=== PATIENT | female | born 1960 | race Caucasian/White ===

== ENCOUNTER 2020-10-07 17:54 | Emergency (ER) | payer BC, OTHER ==
[2020-10-07 18:10] VITALS: TEMP 98.2; BMI 25.5
[2020-10-07 20:59] LABS: BASO % 0.6 % (0-2.0); EOS % 1.4 % (0-4.5); HEMATOCRIT 42.7 % (32.4-45.2); HEMOGLOBIN 14.5 GM/dL (10.7-15.3); LYMPH % 31.2 % (8-40); MCH 31.6 pg (25.7-33.7); MCHC 33.9 g/dl (32.0-36.0); MEAN CELL VOLUME 93.1 fl (80-96); MEAN PLT VOLUME 10.5 fl (7.5-11.1); MONO % 11.8 % (3.8-10.2); PLATELET COUNT 280 K/MM3 (134-434); RBC 4.58 M/mm3 (3.60-5.2); RDW 12.7 % (11.6-15.6); WHITE BLOOD COUNT 9.1 K/mm3 (4.0-10.0)
[2020-10-07 21:14] LABS: EPI CELLS 10 /uL (0-25.1); HYALINE CASTS 0 /uL (0-3.1); PH,URINE 5.5 (5.0-8.0); URINE APPEARANCE CLEAR; URINE BACTERIA 186 /uL (0-1359); URINE BILIRUBIN NEGATIVE (NEGATIVE); URINE COLOR YELLOW; URINE GLUCOSE (UA) NEGATIVE (NEGATIVE); URINE KETONE NEGATIVE (NEGATIVE); URINE LEUK ESTERASE NEGATIVE (NEGATIVE); URINE NITRITE NEGATIVE (NEGATIVE); URINE PROTEIN NEGATIVE (NEGATIVE); URINE RBC 14 /uL (0-23.9); URINE WBC 6 /uL (0-25.8)
[2020-10-07 21:17] LABS: CHLORIDE 108 mmol/L (98-107); SODIUM 142 mmol/L (136-145)
[2020-10-07 21:19] LABS: ALBUMIN 4.1 g/dl (3.4-5.0); ANION GAP 6 MMOL/L (8-16); BLOOD UREA NITROGEN 20.4 mg/dL (7-18); CALCIUM 9.2 mg/dL (8.5-10.1); CO2 28 mmol/L (21-32); LIPASE 329 U/L (73-393)
[2020-10-07 21:20] LABS: GLUCOSE,RANDOM 86 mg/dL (74-106)
[2020-10-07 21:22] LABS: CREATININE 0.8 mg/dL (0.55-1.3); SGOT/AST 34 U/L (15-37); SGPT/ALT 59 U/L (13-61)
[2020-10-07 21:24] LABS: BILIRUBIN,TOTAL 0.4 mg/dL (0.2-1); TOT PROT 7.4 g/dl (6.4-8.2)
[2020-10-07 21:25] LABS: ALK PHOS 73 U/L (45-117)
[2020-10-07 21:51] LABS: AMYLASE > 650 U/L (25-115)
[2020-10-07 23:30] VITALS: BP 110/86; PULSE 72
== END 2020-10-07 23:29 | disposition home or self-care (01) ==
LOC: JER 17:54
DX: R11.0 Nausea (principal); R51.9 Headache, unspecified
CPT/HCPCS: 36415; 70450-TC; 80053; 81003; 82150; 83690; 84484; 85025; 93005; 93010; 99285-25